=== PATIENT | male | born 1980 | race Caucasian/White ===

== ENCOUNTER 2021-03-17 20:13 | Emergency (ER) | payer SELFPAY ==
[~2021-03-17 20:13] MED LIST: LEVAQUIN750 MG PO
[2021-03-17 20:36] LABS: HEMOGLOBIN 13.3 gm/dl (14.0-17.5); RED BLOOD COUNT 4.25 M/UL (4.20-5.50)
[2021-03-17 20:57] LABS: BUN/CREATININE RATIO 8 (0-10)
== END 2021-03-17 23:20 | disposition left against medical advice (07) ==
LOC: ER1 20:13
PROVIDERS: Emergency Medicine
DX: T40.1X1A Poisoning by heroin, accidental (unintentional), initial encounter (principal)
CPT/HCPCS: 70450; 72125; 72128; 72131; 72170; 80053; 85025; 99284